=== PATIENT | female | born 1960 | race Hispanic/Latino ===

== ENCOUNTER 2017-04-27 16:19 | Outpatient (CLI) | payer BC ==
[2017-04-27 17:50] LABS: Hemoglobin 11.5 g/dL (12.0-16.0); Mean Corpuscular HGB CONC 32.2 g/dL (32.0-36.0); Mean Corpuscular Volume 96.2 fl (81.0-99.0); Mean Platelet Volume 7.9 fL (7.4-10.4); Platelet Count 243 thou/uL (130-400); RBC Distribution Width 12.9 % (11.5-14.5); White Blood Cell (WBC) Count 3.2 thou/uL (4.8-10.8)
== END 2017-04-27 16:20 | disposition home or self-care (01) ==
LOC: LABBT 16:19
PROVIDERS: ATTEND Orthopaedic Surgery
DX: Z01.812 Encounter for preprocedural laboratory examination (principal); M65.332 Trigger finger, left middle finger
CPT/HCPCS: 85027; 93005; 93010

== ENCOUNTER 2017-04-29 05:34 | Day surgery (SDC) | payer BC ==
[2017-04-27 16:45] VITALS: BMI 24.7
[2017-04-29] MEDS ORDERED: CEFAZOLIN/Water 2 GM/20 ML SYRINGE ONE (06:13)
[2017-04-29] MEDS ORDERED: Lidocaine 1% (PF) 30 ML VIAL ONE (06:45)
[2017-04-29] MEDS ORDERED: Fentanyl 250 MCG/5 ML VIAL ONE (06:49)
[2017-04-29] MEDS ORDERED: Midazolam HCl 2 mg/2 ml Vial ONE (06:49)
--- NOTE | 2017-04-29 10:56 | OP ---
DATE OF PROCEDURE: 04/29/2017 PREOPERATIVE DIAGNOSIS: Left middle finger trigger finger. POSTOPERATIVE DIAGNOSIS: Left middle finger trigger finger. PROCEDURE: Left middle finger trigger finger release. SURGEON: Kishore Zayas M.D. STATIC BALANCER: None. BLOOD LOSS: Minimal. COMPLICATIONS: None. ANESTHESIA: She had TIVA with local. DISPOSITION: She did go to day stay in stable condition. INDICATIONS: This is a 56-year-old female who has had problems for a long time with multiple trigger fingers. She has required operative intervention in the past. We have tried injecting this middle finger and her symptoms have returned and at this time she wishes for operative intervention. PROCEDURE IN DETAIL: After all appropriate consent forms were explained and signed, Marcy was reddy en to the operating room and at this time was given a TIVA anesthetic. Tourniquet was placed in the left arm and the left arm was prepped and draped in the standard surgical fashion. The incision area was then drawn out, infiltrated with plain lidocaine. The limb was then exsanguinated and the tourn iquet was taken to 250 mmHg. Using loupe magnification, a transverse incision was made over the A1 p ulley down through skin only. Blunt dissection was done with 2 Ragnell retractors to expose the A1 p ulley. A 15 blade was used to incise the A1 gary right down the center to expose the underlying fl exor tendon. Scissors were then used to remove a small portion of the A1 gary, so that it would no t grow together. Scissors were used also to make sure we transected the A1 gary proximally and dis tally. The underlying flexor tendons were then brought out into the wound. The FDS and FDP tendon w ere then evaluated individually and found to be intact. At this time, we thoroughly irrigated with s ome saline. We then used nylon sutures to place a couple interrupted sutures to close the skin incis ion. A bulky sterile soft tissue dressing was applied, tourniquet let down. Her fingers pinked up n icely. She was awakened and taken to the recovery room in stable condition. All counts were correct at the end of the case and she received preoperative IV antibiotics.
[2017-04-29] MEDS ORDERED: Lidocaine 1% PF 5 ML VIAL ONE (18:18)
[2017-04-29] MEDS ORDERED: PROPOFOL 200 MG/20 ML VIAL ONE (18:18)
== END 2017-04-29 09:08 | disposition home or self-care (01) ==
LOC: SDC 05:34
PROVIDERS: ATTEND Orthopaedic Surgery
PROC: 0LN80ZZ Release Left Hand Tendon, Open Approach (ICD-10-PCS; principal; 2017-04-29)
DX: M65.332 Trigger finger, left middle finger (principal); E11.9 Type 2 diabetes mellitus without complications; E78.5 Hyperlipidemia, unspecified; M19.90 Unspecified osteoarthritis, unspecified site; I10 Essential (primary) hypertension; G50.0 Trigeminal neuralgia; Z88.5 Allergy status to narcotic agent; Z98.84 Bariatric surgery status; Z78.0 Asymptomatic menopausal state; Z98.890 Other specified postprocedural states
CPT/HCPCS: J2001; J2250; J2704; J3010

== ENCOUNTER 2017-11-16 09:09 | Outpatient (CLI) | payer BC | END 2017-11-16 09:10 | disposition home or self-care (01) | LOC: BICMAMMO 09:09 | PROVIDERS: ATTEND Family Medicine | DX: Z12.31 Encounter for screening mammogram for malignant neoplasm of breast (principal); Z80.3 Family history of malignant neoplasm of breast | CPT/HCPCS: 77063; 77067 ==

== ENCOUNTER 2019-09-17 08:38 | Outpatient (CLI) | payer BC ==
[2019-09-17] MEDS ORDERED: EPINEPHrine 1 MG/ML AMP ONE (09:00)
[2019-09-17] MEDS ORDERED: Iopamidol 300 61% 50 ML VIAL FS ONE (09:00)
[2019-09-17] MEDS ORDERED: Lidocaine 1% PF 10 ML AMP ONE (09:00)
[2019-09-17] MEDS ORDERED: Gadobenate Dimeglumine 529 MG/1 ML (20ML VIAL) ONE (09:00)
--- NOTE | 2019-09-17 11:58 | MRI ---
MR ARTHROGRAM LEFT SHOULDER: Date: 09/17/2019 PROVIDED CLINICAL HISTORY: Left shoulder pain. FINDINGS: Evaluation is limited by patient motion and susceptibility artifact related to changes of prior rotat or cuff repair and biceps tenodesis. There is conspicuous contrast-containing fluid present within the subacromial/subdeltoid bursa, as we ll as the glenohumeral joint, compatible with a full thickness communication. There is signal alterat ion within the substance of the anterior distal supraspinatus tendon approximately 2.0 cm from the fo otplate. The ABER view demonstrates probable full thickness component closer to the footplate. There is probable low grade partial thickness undersurface tearing involving the cranial fibers of the subs capularis tendon as it approaches the lesser tuberosity insertion. The infraspinatus and teres minor tendons appear intact. The glenoid labrum demonstrates no evidence for tear. Intraarticular longhead biceps tendon is not vi sualized, presumably on the basis of prior tenodesis. No focal articular cartilage defect is apparent . Acromioclavicular joint osteoarthrosis is demonstrated without evidence for mass effect upon the subj acent supraspinatus. No focal concerning regional marrow or muscular signal abnormality apparent. IMPRESSION: 1. Evidence for predominantly high grade partial thickness undersurface tear involving the supraspin atus tendon as described above. Conspicuous subacromial/subdeltoid bursal fluid-containing contrast i s compatible with a full thickness component which is not well delineated. 2. Partial thickness undersurface tearing involving the cranial fibers of the subscapularis. POS: HECTOR
--- NOTE | 2019-09-17 12:52 | RAD ---
ARTHROGRAM LEFT SHOULDER: DATE: 09/17/2019 HISTORY: 58-year-old female with left shoulder pain. TECHNIQUE: Signed informed consent obtained. Anterior skin of shoulder prepared and draped in usual sterile fash ion. 25-gauge needle used to apply buffered lidocaine. Under brief, intermittent fluoroscopy, a 22-gauge spinal needle was advanced into the intracapsular space of the glenohumeral joint. A total o f10 mL of normal saline solution containing MultiHance gadolinium-based contrast agent, Isovue-300 iodinated contrast agent, lidocaine, and epinephrine, was injected. Needle was removed. Patient dejah ated the procedure well. No complications. FINDINGS: There are 2 rotator cuff anchor screws at the humeral head. There is no subluxation of glenohumeral j oint. Postinjection images demonstrate good distribution of contrast material within the intracapsular glenohumeral joint space. There is no abnormal extension of contrast material into the subacromial-subdeltoid bursa. IMPRESSION: 1.) Successful shoulder arthrogram. 2.)Status post left rotator cuff repair. 3) see separate report of subsequent MRI arthrogram of shoulder.
== END 2019-09-17 08:39 | disposition home or self-care (01) ==
LOC: RAD 08:38
PROVIDERS: ATTEND Orthopaedic Surgery
DX: M25.512 Pain in left shoulder (principal); M75.102 Unspecified rotator cuff tear or rupture of left shoulder, not specified as traumatic
CPT/HCPCS: 23350; A9577; J0171; J2001; Q9967

== ENCOUNTER 2019-09-17 11:37 | Outpatient (CLI) | payer BC ==
--- NOTE | 2019-09-17 12:19 | MMO ---
Bilateral MAMMO Bilat Screen [facility]. CLINICAL HISTORY: Patient is 58 years old and is seen for screening. The patient has the following family history of breast cancer: mother, at age 47, malignant (generic). The patient has no personal history of cancer. The patient has a history of left Excisional Biopsy in 2012 - benign. VIEWS: The views performed were: bilateral craniocaudal with tomosynthesis and bilateral mediolateral oblique with tomosynthesis. FILMS COMPARED: The present examination has been compared to prior imaging studies performed at [facility] on 01/02/2014, 04/07/2015, 04/21/2016 and 11/16/2017. This study has been interpreted with the assistance of computer-aided detection. MAMMOGRAM FINDINGS: There are scattered fibroglandular densities. There are stable benign appearing calcifications seen in both breasts. There are no suspicious masses, suspicious calcifications, or new areas of architectural distortion. IMPRESSION: THERE IS NO MAMMOGRAPHIC EVIDENCE OF MALIGNANCY. A ROUTINE FOLLOW-UP MAMMOGRAM IN 1 YEAR IS RECOMMENDED. THE RESULTS OF THIS EXAM WERE SENT TO THE PATIENT. ACR BI-RADS Category 2 - Benign finding MAMMOGRAPHY NOTE: 1. A negative mammogram report should not delay a biopsy if a dominant of clinically suspicious mass is present. 2. Approximately 10% to 15% of breast cancers are not detected by mammography. 3. Adenosis and dense breasts may obscure an underlying neoplasm. Reported by: MARNIE PAINTER MD Electonically Signed: [id number]
== END 2019-09-17 11:38 | disposition home or self-care (01) ==
LOC: BICMAMMO 11:37
PROVIDERS: ATTEND Family Medicine
DX: Z12.31 Encounter for screening mammogram for malignant neoplasm of breast (principal); Z80.3 Family history of malignant neoplasm of breast; Z91.89 Other specified personal risk factors, not elsewhere classified
CPT/HCPCS: 77063; 77067

== ENCOUNTER 2019-12-04 09:02 | Outpatient (CLI) | payer BC ==
--- NOTE | 2019-12-04 10:51 | MRI ---
MRI of thecervical spine: 12/04/2019 COMPARISON:09/11/2009 HISTORY:Cervical radiculitis, bilateral shoulder pain, numbness and tingling of the hands TECHNIQUE: Multiplanar multisequence MR imaging of thecervical spine without contrast Findings:The sagittal STIR imaging demonstrates no focal area of osseous marrow edema. There is moder ate degenerative change at the atlantoaxial interspace. No anterolisthesis or retrolisthesis is noted within the cervical spine. There is no prevertebral soft tissue abnormality. C2-3: No significant central canal or neural foraminal stenosis. C3-4: Mild disc bulge with no significant central canal stenosis. Mild right facet hypertrophy. No si gnificant neural foraminal stenosis. C4-5: Mild left facet hypertrophy with no significant central canal or neural foraminal stenosis C5-6: Disc space narrowing and mild disc bulge with partial effacement of the ventral thecal sac and mild central canal stenosis. Mild left neural foraminal stenosis on the basis of facet and uncovertebral osteophyte formation. C6-7: No significant central canal or neural foraminal stenosis C7-T1: No significant central canal or neural foraminal stenosis No focal area of abnormal signal intensity identified within the cervical cord. Detailed assessment is slightly limited secondary to persistent patient motion artifact. IMPRESSION:Mild degenerative change.
--- NOTE | 2019-12-04 10:55 | MRI ---
MRI OF RIGHT WRIST: DATE: 12/04/2019. PROVIDED CLINICAL HISTORY: Right wrist pain. FINDINGS: No comparisons. The dorsal extensor and volar flexor tendons demonstrate an intact MR appearance. There is signal inhomogeneity involving the radial aspects of the central TFC disk suspicious for tea r. The remainder of the TFC complex appears intact. There is greater than physiologic distal radial ulnar joint fluid. The amounts of fluid within the radiocarpal and mid carpal joints appear physiol ogic. The scapholunate and lunotriquetral ligaments appear intact. Subcortical cyst-like changes are seen within the capitate and base of the triquetrum. Alignment chandu ears anatomic. Joint spaces appear preserved. The courses of the regional major neurovascular structures appear unremarkable. IMPRESSION: Findings suspicious for tear involving the central aspects of the triangular fibrocartilage disk. POS: AH
== END 2019-12-04 09:03 | disposition home or self-care (01) ==
LOC: BICMRI 09:02
PROVIDERS: ATTEND Orthopaedic Surgery Hand Surgery
DX: S63.591A Other specified sprain of right wrist, initial encounter (principal); M47.22 Other spondylosis with radiculopathy, cervical region
CPT/HCPCS: 72141

== ENCOUNTER 2020-01-17 14:07 | Outpatient (CLI) | payer OTHER ==
--- NOTE | 2020-01-17 15:14 | RAD ---
Exam: Left hand 2 views: HISTORY: Rupture flexor tendon of left hand COMPARISON: None FINDINGS: No evidence for fracture, dislocation, or other significant acute osseous abnormality. IMPRESSION: No significant acute process.
--- NOTE | 2020-01-17 15:24 | MRI ---
EXAM: MRI Upper Ext Jt Lt WO Con DATE: 01/17/2020 2:20 PM INDICATION: History of rupture of a flexor tendon of the left hand COMPARISON: Left hand radiograph dated January 17, 2020 FINDING: There are scattered subchondral cystlike abnormalities involving the wrist carpus scattered MCP and IP joints of the left hand suspicious for the presence of an inflammatory arthritis. No definite active marrow edema or joint effusion. The visualized flexor tendons of the left hand appear intact without evidence for post ringing. No tenosynovitis is evident. The intrinsic hand musculature has a normal signal intensity and bulk. Extensor tendons appear intact. The visualized FC R and FCU tendons appear intact. IMPRESSION: 1. No definite flexor tendon injury identified. 2. Scattered subchondral cystlike abnormalities involving the wrist carpus, scattered MCP joints and IP joints of the left hand. Similar pattern is seen within the contralateral right wrist on an MRI of the right wrist dated December 04, 2019. Recommend consideration for rheumatology evaluation for po ssible inflammatory arthropathy.
== END 2020-01-17 14:08 | disposition home or self-care (01) ==
LOC: BICMRI 14:07
PROVIDERS: ATTEND Orthopaedic Surgery Hand Surgery
DX: S66.812A Strain of other specified muscles, fascia and tendons at wrist and hand level, left hand, initial encounter (principal)

== ENCOUNTER 2020-01-22 06:44 | Outpatient (CLI) | payer BC ==
[2020-01-22 15:15] LABS: Bilirubin Neg (Negative); Blood, Urine Negative (Negative); Clarity Slightly Cloudy (Clear); Glucose, Urine (Dipstick) Normal (Negative); Ketone, Urine 5 mg/dL (Negative); Leukocyte 25 (Negative); Nitrite Positive (Negative); Protein, Urine (Dipstick) 15 mg/dl (Neg-Trace); Specific Gravity, Urine 1.025 (1.002-1.036)
[2020-01-22 15:49] LABS: Bacteria/HPF 4+ HPF (None Seen); Mucous/LPF 4+ LPF (<2+); RBC/HPF 0-3 HPF (0-3)
[2020-01-22 15:55] LABS: #Eosinphils 0.1 10x3/uL (0.0-0.5); #Monocytes 0.4 10x3/uL (0.0-1.1); #Neutrophils 2.3 10x3/uL (1.5-8.4); %Basophils 0.4 % (0.0-2.0); %Eosinophils 1.9 % (0.0-6.0); %Lymphocytes 41.1 % (18.0-47.0); %Monocytes 7.9 % (0.0-10.0); %Neutrophils 48.3 % (40.0-75.0); Hemoglobin 11.9 g/dL (12.0-16.0); Mean Corpuscular HGB CONC 33.4 G/DL (32.0-36.0); Mean Corpuscular Hemoglobin 32.3 PG (27.0-33.0); Mean Corpuscular Volume 96.7 fl (80.0-100.0); Mean Platelet Volume 10.1 fl (7.4-10.4); Platelet Count 231 10x3/uL (130-400); RBC Distribution Width 12.4 % (11.5-14.5); Red Blood Cell (RBC) Count 3.68 10x6/uL (3.90-5.20); White Blood Cell (WBC) Count 4.8 10x3/uL (4.5-11.0)
[2020-01-22 16:02] LABS: Anion Gap 18 mmol/L (10-20); BUN (Urea Nitrogen) 17 mg/dL (9.8-20.1); Calc. Creatinine Clearance 0 mL/min (70-130); Calcium 9.3 mg/dL (7.8-10.44); Carbon Dioxide 22 mmol/L (22-29); Chloride 106 mmol/L (98-107); Glucose 157 mg/dL (70-105); Potassium 4.6 mmol/L (3.5-5.1); Sodium 141 mmol/L (136-145)
[2020-01-23 02:56] LABS: SARS-CoV-2 MS2 Positive; SARS-CoV-2 N Gene Negative; SARS-CoV-2 S Gene Negative; SARS-CoV-2 by NAA Not Detected (NotDetected); SARS-CoV-2 orf1ab Negative
== END 2020-01-22 06:45 | disposition home or self-care (01) ==
LOC: LABBT 06:44
PROVIDERS: ATTEND Orthopaedic Surgery Hand Surgery
DX: Z01.818 Encounter for other preprocedural examination (principal); Z20.828 Contact with and (suspected) exposure to other viral communicable diseases; G56.01 Carpal tunnel syndrome, right upper limb; S63.591A Other specified sprain of right wrist, initial encounter
CPT/HCPCS: 80048; 81001; 85025; 87635; 93005; 93010; U0003

== ENCOUNTER 2020-01-25 05:52 | Day surgery (SDC) | payer BC ==
[2020-01-24 13:08] VITALS: BMI 26.5
[2020-01-25] MEDS ORDERED: Betamet Acet/Betamet Na Ph 30 MG/5 ML VIAL ONE (06:14)
[2020-01-25] MEDS ORDERED: Bupivacaine PF 0.5% 30 ML VIAL ONE (06:14)
[2020-01-25] MEDS ORDERED: EPINEPHrine 1 MG/ML AMP ONE (06:14)
[2020-01-25] MEDS ORDERED: Bacitracin Zinc Ointment 30 gm TUBE ONE (06:15)
[2020-01-25] MEDS ORDERED: Sodium Chloride 0.9% 10 ML ONE (06:15)
[2020-01-25] MEDS ORDERED: Fentanyl 100 MCG/2 ML VIAL ONE ×2 (06:48→06:52)
[2020-01-25] MEDS ORDERED: Midazolam HCl 2 mg/2 ml Vial ONE (06:52)
[2020-01-25] MEDS ORDERED: Ketorolac Tromethamine 30 MG/ML VIAL ONE (10:11)
[2020-01-25] MEDS ORDERED: Lidocaine 1% PF 5 ML VIAL ONE (10:23)
[2020-01-25] MEDS ORDERED: Dexamethasone 20 MG/5 ML VIAL ONE (10:23)
[2020-01-25] MEDS ORDERED: Ondansetron PF 4 MG/2 ML Vial ONE (10:23)
[2020-01-25] MEDS ORDERED: Bupivacaine HCl 0.5%/Epinephrine 1:200,000/PF 30 ml Vial ONE (10:23)
[2020-01-25] MEDS ORDERED: ePHEDrine 50 MG/ML VIAL ONE (10:23)
[2020-01-25] MEDS ORDERED: PROPOFOL 200 MG/20 ML VIAL ONE (10:23)
--- NOTE | 2020-01-25 11:07 | OP ---
DATE OF PROCEDURE: 01/25/2020 PREOPERATIVE DIAGNOSES: 1. Right wrist synovitis. 2. Right wrist triangular fibrocartilage tear. 3. Carpal tunnel syndrome. POSTOPERATIVE DIAGNOSES: 1. Carpal tunnel syndrome with a very tight transverse carpal ligament, early flattening of median nerve and extensor canal. 2. Volar capsular tear at the level of a triquetral chondral tear with a small 3 to 4 mm loose body. 3. No central, ulnar or radial triangular fibrocartilage tear seen. Marked synovitis, however, is seen in the direct ulnar aspect just dorsal to the capsule tear. PROCEDURE PERFORMED: 1. Right wrist arthroscopic debridement with synovectomy. 2. Right carpal tunnel release. TOURNIQUET TIME: 15 minutes. COMPLICATIONS: None. ESTIMATED BLOOD LOSS: 10 mL. DESCRIPTION OF PROCEDURE: After successful general endotracheal anesthesia, the limb was prepped and draped. The patient had already had a block, so no Marcaine was given. We placed her in standard arm in-line traction for wrist arthroscopy. We identified the extensor carpi ulnaris tendon and just at the level of ulnar styloid, dorsal and palmar to the tendon, we outlined the 6R and 6U portals respectively. We identified Kristen's tubercle and then outlined the primary radial 3-4 portal. Through the 3-4 portal, we placed 7 mL of normal saline within the joint, placed the 18-gauge needle with a 10 mL syringe filled with fluid in the area, which would be the 6U portal and entered the wrist in a standard fashion. Panoramic view of the wrist revealed completely normal scaphoid, radial surface of the scapholunate ligament, radial surface of the lunate, the whole radial and central trying fibrocartilage along with the ulnar triangular fibrocartilage required synovectomy in order to visualize because there was marked synovitis beginning at the level of the lunate triquetral area. The lunate triquetral ligament was intact. We saw a chondral tear at the ulnar corner of the triquetrum at the level of its dorsal volar capsule, and then from there for approximately 6 to 7 mm, there was a large amount of synovitis and a capsular flap tear. We established a 6U portal as well as the 6R portal and was able to visualize and resect this tear. We then probed the triangular fibrocartilage and found no tear of the triangular fibrocartilage in its ulnar aspect either dorsally or palmarly and in the central area. We then finished the debridement and removed the arthroscope. We left the portals open for drainage. The patient then had the arthroscope removed and we removed it from traction, exsanguinated the limb and inflated tourniquet to 250 mmHg pressure. We then outlined an incision in-line with the ring finger mediolaterally and as far distal as Veliz cardinal line and as far proximal as 5 to 6 mm distal to the volar wrist flexion crease. We entered this incision through skin and subcutaneous tissue, identified the transverse carpal ligament. We made the transverse carpal ligament aligned with the central portion of the palmaris longus tendon. We opened it with a combination of Bellona blade and tenotomy scissors from midportion distally. We protected all the digital nerve branches. There was no true marked tenosynovitis. We then released it from the midportion proximally under direct visualization with combination of Bellona blade and tenotomy scissors. Here, we noticed an area of about 6 mm of mild flattening of the median nerve, where the transverse carpal ligament was most tight. The ligament was completely free and could be visualized free, almost 15 mm proximal to the volar wrist flexion crease. We then placed 3 mL of Celestone on the nerve and obtained hemostasis. We released the tourniquet and closed the incision with interrupted 4-0 nylon in a mattress pattern. The patient left the operating room without evidence of anesthetic or operative complication. Job ID: [id number]
== END 2020-01-25 12:30 | disposition home or self-care (01) ==
LOC: SDC 05:52
PROVIDERS: ATTEND Orthopaedic Surgery Hand Surgery
DX: S63.591A Other specified sprain of right wrist, initial encounter (principal); G56.01 Carpal tunnel syndrome, right upper limb; Z79.82 Long term (current) use of aspirin; Z79.899 Other long term (current) drug therapy; Z88.2 Allergy status to sulfonamides
CPT/HCPCS: J0171; J0690; J0702; J1100; J1885; J2250; J2405; J2704; J3010; J3490; S0020

== ENCOUNTER 2020-10-03 14:37 | Outpatient (CLI) | payer BC ==
[2020-10-03 15:45] LABS: #Eosinphils 0.1 10x3/uL (0.0-0.5); #Monocytes 0.3 10x3/uL (0.0-1.1); %Basophils 0.5 % (0.0-2.0); %Eosinophils 2.7 % (0.0-6.0); %Lymphocytes 39.6 % (18.0-47.0); %Monocytes 7.8 % (0.0-10.0); %Neutrophils 49.2 % (40.0-75.0); Hemoglobin 12.2 g/dL (12.0-15.5); Mean Corpuscular Hemoglobin 32.7 pg (27.0-33.0); Mean Corpuscular Volume 96.2 fl (81.6-98.3); Mean Platelet Volume 9.2 fl (7.4-10.4); Platelet Count 249 10x3/uL (150-450); RBC Distribution Width 12.9 % (11.5-14.5); Red Blood Cell (RBC) Count 3.73 10x6/uL (3.90-5.03); White Blood Cell (WBC) Count 4.1 10x3/uL (3.5-10.5)
[2020-10-03 16:10] LABS: Bilirubin Neg (Negative); Blood, Urine 10 (Negative); Clarity Cloudy (Clear); Glucose, Urine (Dipstick) >=1000 mg/dL (Negative); Ketone, Urine Negative (Negative); Leukocyte 100 (Negative); Nitrite Negative (Negative); Protein, Urine (Dipstick) Negative (Neg-Trace); Specific Gravity, Urine 1.015 (1.002-1.036); Urobilinogen Normal mg/dL (Less than 2)
[2020-10-03 17:36] LABS: Bacteria/HPF 1+ HPF (None Seen); Squamous Epithelial 0-3 HPF (0-3)
[2020-10-04 13:56] LABS: SARS-CoV-2 PCR by NAA Not Detected (NotDetected)
== END 2020-10-03 14:38 | disposition home or self-care (01) ==
LOC: LABBT 14:37
PROVIDERS: ATTEND Orthopaedic Surgery Hand Surgery
DX: Z01.812 Encounter for preprocedural laboratory examination (principal); Z20.822 Contact with and (suspected) exposure to COVID-19
CPT/HCPCS: 81001; 85025; U0003; U0005

== ENCOUNTER 2021-03-26 09:37 | Outpatient (CLI) | payer BC | END 2021-03-26 09:38 | disposition home or self-care (01) | LOC: MRI 09:37 | PROVIDERS: ATTEND Orthopaedic Surgery Hand Surgery | DX: M25.531 Pain in right wrist (principal) ==

== ENCOUNTER 2021-04-08 08:22 | Outpatient (CLI) | payer BC | END 2021-04-08 08:23 | disposition home or self-care (01) | LOC: BICMAMMO 08:22 | PROVIDERS: ATTEND Family Medicine | DX: Z12.31 Encounter for screening mammogram for malignant neoplasm of breast (principal); Z80.3 Family history of malignant neoplasm of breast; Z91.89 Other specified personal risk factors, not elsewhere classified | CPT/HCPCS: 77063; 77067 ==

== ENCOUNTER 2021-05-15 08:47 | Outpatient (CLI) | payer BC ==
[2021-05-15 11:25] LABS: #Eosinphils 0.1 10x3/uL (0.0-0.5); #Monocytes 0.3 10x3/uL (0.0-1.1); #Neutrophils 1.4 10x3/uL (1.5-8.4); %Basophils 0.7 % (0.0-2.0); %Eosinophils 4.3 % (0.0-6.0); %Monocytes 9.8 % (0.0-10.0); %Neutrophils 44.2 % (40.0-75.0); Hemoglobin 12.3 g/dL (12.0-15.5); Mean Corpuscular HGB CONC 33.6 g/dL (32.0-36.0); Mean Corpuscular Hemoglobin 32.9 pg (27.0-33.0); Mean Corpuscular Volume 97.9 fl (81.6-98.3); Platelet Count 255 10x3/uL (150-450); RBC Distribution Width 13.4 % (11.5-14.5); Red Blood Cell (RBC) Count 3.74 10x6/uL (3.90-5.03); White Blood Cell (WBC) Count 3.1 10x3/uL (3.5-10.5)
[2021-05-15 11:36] LABS: Anion Gap 13 mmol/L (10-20); BUN (Urea Nitrogen) 15 mg/dL (9.8-20.1); Calc. Creatinine Clearance 0 mL/min (70-130); Calcium 9.4 mg/dL (7.8-10.44); Carbon Dioxide 28 mmol/L (23-31); Chloride 105 mmol/L (98-107); Glucose 63 mg/dL (80-115); Sodium 142 mmol/L (136-145)
[2021-05-15 18:46] LABS: SARS-CoV-2 PCR by NAA Not Detected (NotDetected)
== END 2021-05-15 08:48 | disposition home or self-care (01) ==
LOC: LABBT 08:47
PROVIDERS: ATTEND Orthopaedic Surgery Hand Surgery
DX: Z01.818 Encounter for other preprocedural examination (principal); S63.591A Other specified sprain of right wrist, initial encounter; Z20.822 Contact with and (suspected) exposure to COVID-19
CPT/HCPCS: 80048; 85025; 93005; 93010; U0003; U0005

== ENCOUNTER 2021-05-19 07:28 | Day surgery (SDC) | payer BC ==
[2021-05-13 14:44] VITALS: BMI 24.7
[2021-05-19] MEDS ORDERED: EPINEPHrine 1 MG/ML AMP ONE (07:51)
[2021-05-19] MEDS ORDERED: Bacitracin Zinc Ointment 30 gm TUBE ONE (07:51)
[2021-05-19] MEDS ORDERED: Thrombin 5000 UNITS/5 ML VIAL ONE (07:51)
[2021-05-19] MEDS ORDERED: Bupivacaine 0.25% 10 ML VIAL ONE (07:51)
[2021-05-19] MEDS ORDERED: Neomycin-Polymyxin 1 ML AMP ONE (07:52)
[2021-05-19] MEDS ORDERED: Lidocaine 1% (PF) 30 ML VIAL ONE (08:22)
[2021-05-19] MEDS ORDERED: Midazolam HCl 2 mg/2 ml Vial ONE (08:22)
[2021-05-19] MEDS ORDERED: Fentanyl 100 MCG/2 ML VIAL ONE (08:22)
[2021-05-19] MEDS ORDERED: ceFAZolin (BATCH) 2 GM/100 ML BAG ONE (08:57)
[2021-05-19] MEDS ORDERED: Lidocaine 1% PF 5 ML VIAL ONE (09:00)
[2021-05-19] MEDS ORDERED: PROPOFOL 200 MG/20 ML VIAL ONE (09:00)
[2021-05-19] MEDS ORDERED: ePHEDrine 50 MG/ML VIAL ONE (09:00)
[2021-05-19] MEDS ORDERED: Ondansetron PF 4 MG/2 ML Vial ONE (09:00)
[2021-05-19] MEDS ORDERED: Ketorolac Tromethamine 30 MG/ML VIAL ONE (09:00)
[2021-05-19] MEDS ORDERED: Ropivacaine 0.5% HCl/PF (150 MG/30 ML VIAL) ONE (09:00)
[2021-05-19] MEDS ORDERED: Dexamethasone 20 MG/5 ML VIAL ONE (09:00)
== END 2021-05-19 14:18 | disposition home or self-care (01) ==
LOC: SDC 07:28
PROVIDERS: ATTEND Orthopaedic Surgery Hand Surgery
PROC: 0RQN0ZZ Repair Right Wrist Joint, Open Approach (ICD-10-PCS; principal; 2021-05-19)
PROC: 3E0T3BZ Introduction of Anesthetic Agent into Peripheral Nerves and Plexi, Percutaneous Approach (ICD-10-PCS; principal; 2021-05-19)
DX: S63.591A Other specified sprain of right wrist, initial encounter (principal); M65.88 Other synovitis and tenosynovitis, other site; E11.9 Type 2 diabetes mellitus without complications; E78.5 Hyperlipidemia, unspecified; M19.90 Unspecified osteoarthritis, unspecified site; I10 Essential (primary) hypertension; Z79.1 Long term (current) use of non-steroidal anti-inflammatories (NSAID); Z79.82 Long term (current) use of aspirin; Z79.84 Long term (current) use of oral hypoglycemic drugs; Z79.899 Other long term (current) drug therapy; Z88.2 Allergy status to sulfonamides
CPT/HCPCS: 36416; J0171; J0690; J1100; J1885; J2001; J2250; J2405; J2704; J2795; J3010; J3490; S0020

== ENCOUNTER 2021-12-10 16:17 | Outpatient (CLI) | payer BC | END 2021-12-10 16:18 | disposition home or self-care (01) | LOC: RAD 16:17 | PROVIDERS: ATTEND Psychiatry & Neurology Neurology | DX: M54.41 Lumbago with sciatica, right side (principal) | CPT/HCPCS: 72100 ==

== ENCOUNTER 2022-03-26 09:13 | Outpatient (CLI) | payer BC | END 2022-03-26 09:14 | disposition home or self-care (01) | LOC: SCSMRI 09:13 | PROVIDERS: ATTEND Orthopaedic Surgery Hand Surgery | DX: M65.4 Radial styloid tenosynovitis [de Quervain] (principal); M79.645 Pain in left finger(s); M19.042 Primary osteoarthritis, left hand ==

== ENCOUNTER 2022-06-09 08:58 | Outpatient (CLI) | payer BC | END 2022-06-09 08:59 | disposition home or self-care (01) | LOC: BICMAMMO 08:58 | PROVIDERS: ATTEND Family Medicine | DX: Z12.31 Encounter for screening mammogram for malignant neoplasm of breast (principal) | CPT/HCPCS: 77063; 77067 ==

== ENCOUNTER 2022-09-28 16:06 | Outpatient (CLI) | payer BC ==
[2022-09-28 16:56] LABS: Bilirubin Neg (Negative); Blood, Urine Negative (Negative); Clarity Clear (Clear); Glucose, Urine (Dipstick) Normal (Negative); Ketone, Urine Negative (Negative); Leukocyte 100 (Negative); Nitrite Negative (Negative); Protein, Urine (Dipstick) Negative (Neg-Trace); Specific Gravity, Urine 1.005 (1.005-1.030); Urobilinogen Normal mg/dL (Less than 2)
[2022-09-28 16:57] LABS: #Eosinphils 0.1 10x3/uL (0.0-0.5); #Monocytes 0.3 10x3/uL (0.0-1.1); #Neutrophils 1.8 10x3/uL (1.5-8.4); %Basophils 0.5 % (0.0-2.0); %Lymphocytes 39.2 % (18.0-47.0); %Monocytes 7.1 % (0.0-10.0); %Neutrophils 50.2 % (40.0-75.0); Hematocrit 35.5 % (34.9-44.5); Hemoglobin 11.8 g/dL (12.0-15.5); Mean Corpuscular HGB CONC 33.2 g/dL (32.0-36.0); Mean Corpuscular Hemoglobin 32.2 pg (27.0-33.0); Mean Corpuscular Volume 96.7 fl (81.6-98.3); Mean Platelet Volume 9.8 fl (7.4-10.4); Platelet Count 236 10x3/uL (150-450); Red Blood Cell (RBC) Count 3.67 10x6/uL (3.90-5.03); White Blood Cell (WBC) Count 3.7 10x3/uL (3.5-10.5)
== END 2022-09-28 16:07 | disposition home or self-care (01) ==
LOC: LABBT 16:06
PROVIDERS: ATTEND Orthopaedic Surgery Hand Surgery
DX: Z01.818 Encounter for other preprocedural examination (principal); G56.01 Carpal tunnel syndrome, right upper limb; G56.21 Lesion of ulnar nerve, right upper limb
CPT/HCPCS: 81003; 85025; 93005; 93010

== ENCOUNTER 2022-10-01 07:02 | Day surgery (SDC) | payer BC ==
[2022-09-28 17:08] VITALS: BMI 25.9
[2022-10-01] MEDS ORDERED: Bupivacaine PF 0.5% 30 ML VIAL ONE (08:58)
[2022-10-01] MEDS ORDERED: Thrombin 5000 UNITS/5 ML VIAL ONE (08:58)
[2022-10-01] MEDS ORDERED: Bacitracin Zinc Ointment 30 gm TUBE ONE (08:58)
[2022-10-01] MEDS ORDERED: Sodium Chloride 0.9% 100 ML ONE (09:42)
[2022-10-01] MEDS ORDERED: CEFAZOLIN 2 GM VIAL ONE (09:42)
[2022-10-01] MEDS ORDERED: fentaNYL PF 100 MCG/2 ML SYRINGE ONE (09:44)
[2022-10-01] MEDS ORDERED: Dexamethasone 20 MG/5 ML VIAL ONE (09:53)
[2022-10-01] MEDS ORDERED: Lidocaine 1% PF 5 ML VIAL ONE (09:53)
[2022-10-01] MEDS ORDERED: PROPOFOL 200 MG/20 ML VIAL ONE (09:53)
[2022-10-01] MEDS ORDERED: ePHEDrine Sulfate 50 MG/10 ML VIAL ONE (09:53)
[2022-10-01] MEDS ORDERED: Ondansetron PF 4 MG/2 ML Vial ONE (09:53)
[2022-10-01] MEDS ORDERED: diphenhydrAMINE 50 MG/ML VIAL ONE (09:53)
[2022-10-01] MEDS ORDERED: fentaNYL 50 mcg/mL 1 mL Vial ONE (12:44)
[2022-10-01 13:56] LABS: Hematocrit 31.9 % (36.0-47.0); Hemoglobin 10.9 g/dL (12.0-16.0); Mean Corpuscular HGB CONC 34.2 g/dL (32.0-36.0); Mean Corpuscular Hemoglobin 32.9 pg (27.0-31.0); Mean Corpuscular Volume 96.4 fl (78.0-98.0); Mean Platelet Volume 9.8 fL (7.4-10.4); Platelet Count 201 10x3/uL (130-400); RBC Distribution Width 13.1 % (11.5-14.5); Red Blood Cell (RBC) Count 3.31 mill/uL (4.20-5.40); White Blood Cell (WBC) Count 6.3 10x3/uL (4.8-10.8)
[2022-10-01] MEDS ORDERED: HYDROcodone/Acetaminophen 5/325 mg Tablet ONE (15:37)
== END 2022-10-01 15:55 | disposition home or self-care (01) ==
LOC: SDC 07:02
PROVIDERS: ATTEND Orthopaedic Surgery Hand Surgery
PROC: 01N50ZZ Release Median Nerve, Open Approach (ICD-10-PCS; principal; 2022-10-01)
PROC: 01N40ZZ Release Ulnar Nerve, Open Approach (ICD-10-PCS; principal; 2022-10-01)
DX: G56.21 Lesion of ulnar nerve, right upper limb (principal); G56.01 Carpal tunnel syndrome, right upper limb; E11.9 Type 2 diabetes mellitus without complications; F41.9 Anxiety disorder, unspecified; E55.9 Vitamin D deficiency, unspecified; E78.5 Hyperlipidemia, unspecified; F32.A Depression, unspecified; Z90.49 Acquired absence of other specified parts of digestive tract; Z88.2 Allergy status to sulfonamides; Z79.899 Other long term (current) drug therapy
CPT/HCPCS: 36415; 71046; 85027; C1713; J1100; J1200; J2405; J2704; J3010; J3490; S0020